=== PATIENT | male | born 1950 | race Caucasian/White ===

== ENCOUNTER 2018-04-01 07:08 | Day surgery (SDC) | payer MEDICARE, BC ==
--- NOTE | 2018-03-28 13:12 | HP ---
AMENDED REPORT NOW INCLUDES COSIGNER DESIGNATION - ESIGNED BEFORE ADJUSTMENT PREOPERATIVE HISTORY AND PHYSICAL: DATE OF ADMISSION/SURGERY: 04/01/18 ATTENDING SURGEON: Almita Szymanski MD * (DICTATED BY MIGUELANGEL KEN) WEATHER STRIP MECHANIC: Dr. Gil Roa in [place]. PROCEDURE: Right wrist de Quervain's release. HISTORY OF PRESENT ILLNESS: This is a 67-year-old male, who complains of pain in his right wrist near the base of his thumb for the past 4 months. He denies any specific injury. He reports that the pain is often times sharp, but sometimes it is dull or burning pain. He has trouble sleeping at night sometimes because of the problem and the pain has gotten worse over time. He denies any associated numbness or tingling. He is a very active individual and does a lot of hiking. He has trouble holding onto his hiking poles because of this problem. He has been diagnosed clinically with de Quervain's tenosynovitis. The patient is interested in pursuing surgical intervention for resolution of this problem. He had a quadruple bypass in 2009. He sees his denier control operator, Dr. Gil Roa, on a regular basis. He most recently had a stress test in September 2017 and there were no problems. We will get clearance from his denier control operator prior to proceeding with surgery. PAST MEDICAL HISTORY: 1. Questionable VT in 2009. 2. Hypertension. 3. Hypercholesterolemia. 4. Acid reflux. PAST SURGICAL HISTORY: 1. Quadruple bypass in 2009. 2. Left carpal tunnel release. 3. Right carpal tunnel release. 4. Cholecystectomy. 5. Appendectomy. CURRENT MEDICATIONS: 1. Aspirin 81 mg daily. 2. Atorvastatin calcium 40 mg daily. 3. CoQ10 of 100 mg daily. 4. Diclofenac sodium topical. 5. Famotidine 40 mg daily. 6. Flaxseed oil 1000 mg 2 daily. 7. Hydrochlorothiazide 25 mg daily. 8. Metoprolol succinate ER 25 mg daily. 9. Multivitamin daily. 10. Valsartan 160 mg daily. 11. Vitamin B12 of 1000 mcg daily. ALLERGIES: No known drug allergies. FAMILY HISTORY: Significant for heart disease and stroke. SOCIAL HISTORY: The patient is a retired aeroplane pilot. He denies tobacco use and recreational drug use. He does drink alcohol on occasion. He exercises regularly. REVIEW OF SYSTEMS: General: Negative for fevers, chills, night sweats, unexplained weight loss or gain. No known anesthesia problems in the past. HEENT: Negative for headache, lightheadedness, syncopal episodes, visual changes. Integumentary: Negative for abrasions, lesions, or open wounds. Cardiothoracic: Negative for hypertension, chest pain, palpitations, edema. Respiratory: Negative for shortness of breath with exertion, chronic cough, wheezing. GI: Negative for nausea, vomiting, diarrhea, constipation, GERD. : Negative for nocturia, urinary frequency, urgency, history of UTIs, kidney problems. Musculoskeletal: Positive for current complaint. Negative for chronic or intermittent back pain. Neurological: Negative for paresthesias, numbness, history of seizure, stroke, poor balance. Endocrine: Negative for diabetes and thyroid issues. Hematologic: Negative for easy bruising, anemia, bleeding disorders, history of DVT. Infectious Disease: Negative for history of MRSA, hepatitis C, HIV. PHYSICAL EXAMINATION GENERAL: Well-developed, well-nourished 67-year-old male in no acute distress. VITAL SIGNS: Height 5 feet 6 inches, weight 170 pounds. Pulse rate 66, blood pressure 132/74. HEENT: Normocephalic, atraumatic. Pupils are equal, round, and reactive to light and accommodation. Extraocular movements are intact. Throat is clear. NECK: Supple. No palpable lymph nodes. PULMONARY: Lungs are clear to auscultation bilaterally. No wheezes, rales, or rhonchi. CARDIOVASCULAR: Regular rate and rhythm. S1, S2. No murmurs, rubs, or gallops. No edema. ABDOMEN: Positive bowel sounds. Soft, nontender. NEUROLOGICAL: Alert and oriented x3. Cranial nerves II through XII are intact. Sensation is intact to light touch. MUSCULOSKELETAL: On exam of his right wrist, he has tenderness to palpation along the first dorsal compartment and a positive Anish test. Negative grind test, although he does have minimal tenderness to palpation at the thumb CMC joint. He has good motion in his fingers and thumb with some increase in pain with thumb abduction and wrist radial deviation on extension. IMAGING STUDIES: X-rays AP, lateral and oblique of the right wrist show no bony abnormality. He does not have significant thumb CMC arthritis. IMPRESSION: Right wrist de Quervain's tenosynovitis. PLAN: The patient is scheduled to undergo a right wrist Quervain's release with Dr. Szymanski on 04/01/18. He will return to the office 10 days postop for followup and suture removal. A prescription for Ultracet was e-scribed to the patient's pharmacy for postoperative pain management. We will receive cardiac clearance prior to surgery from his denier control operator, Dr. Gil Roa. KARL MAGANA, MIGUELANGEL [id number]/[facility] #: [id number] CAITY
[~2018-04-01 07:08] MED LIST: Buffered Lidocaine 0.9% SYRIN* 5 ML/SYR SYRINGE INTRADERM ONE
[2018-04-01] MEDS ORDERED: Midazolam* 1 MG/ML 2 ML VIAL (2 MG) ONE (08:14)
[2018-04-01] MEDS ORDERED: Propofol* 10 MG/ML 20 ML BTL IV PUSH ONE (08:14)
[2018-04-01] MEDS ORDERED: Lidocaine 2% MPF* 2 ML VIAL ONE (08:14)
[2018-04-01] MEDS ORDERED: fentaNYL* 50 MCG/ML 2 ML VIAL (100 MCG VIAL) ONE (08:14)
[2018-04-01] MEDS ORDERED: Ketorolac INJ* 30 MG/ML 1 ML VIAL ONE (08:14)
[2018-04-01] MEDS ORDERED: Lidocaine 1% INJ* 10 MG/ML 30 ML SDV ONE (08:18)
[2018-04-01] MEDS ORDERED: HYDROmorphone INJ* 1 MG/ML CARPUJECT SYRINGE IV PRN (08:44)
[2018-04-01] MEDS ORDERED: Ondansetron INJ* 2 MG/ML VIAL IV PRN (08:44)
[2018-04-01] MEDS ORDERED: oxyCODONE/Acetamin 5/325 MG* TAB PO PRN (08:44)
[2018-04-01] MEDS ORDERED: oxyCODONE TAB* 5 MG TAB PO PRN (08:44)
[2018-04-01] MEDS ORDERED: Acetaminophen TAB* 325 MG PO PRN (08:44)
[2018-04-01] MEDS ORDERED: Naloxone* 0.4 MG/ML 1 ML VIAL IV PRN (08:44)
[2018-04-01] MEDS ORDERED: fentaNYL* 50 MCG/ML 2 ML VIAL (100 MCG VIAL) IV PRN (08:44)
[2018-04-01 09:13] VITALS: BP 108/72
--- NOTE | 2018-04-01 14:27 | OP ---
CC: Almita Szymanski MD OPERATIVE REPORT: DATE OF OPERATION: 04/01/18 DATE OF : 54 SURGEON: Almita Szymanski MD. MONITORING SPECIALIST: MIGUELANGEL Weathers. ANESTHESIA: Local MAC. PRE-OP DIAGNOSIS: Right de Quervain's tenosynovitis. POST-OP DIAGNOSIS: Right de Quervain's tenosynovitis. OPERATIVE PROCEDURE: Right de Quervain's release. ESTIMATED BLOOD LOSS: Zero. TOURNIQUET TIME: Approximately 10 minutes. INDICATIONS FOR PROCEDURE: Mathew is a 67-year-old man who has pain on the radial aspect of his right wrist consistent with de Quervain's tenosynovitis. He presents for de Quervain's release. DESCRIPTION OF PROCEDURE: The patient was brought to the operating room, was given a sedation anesth etic and a local infiltration of 10 cc of 1% plain lidocaine at the radial aspect of his right wrist. The skin of his right hand and forearm was prepped and draped in the usual sterile fashion. The gama nd and forearm were exsanguinated and the tourniquet elevated to 250 mmHg. A longitudinal incision w as centered at the tip of the radial styloid. We dissected through the subcutaneous tissue bluntly. Branches of the radial sensory nerve were located and retracted by the surgical services coordinator, Rosa sexton. The virtual customer assistant's presence was essential for safe completion of the case by protecting the sens ory nerves. The first dorsal compartment was then incised longitudinally. The APL and EPB tendons w ere in separate compartments and these were both completely released. There was abundant and erythem atous tenosynovitis surrounding the tendons and this was debrided. The wound was irrigated and the s kin edges reapproximated with 4-0 nylon suture. The wound was dressed with Xeroform, 4x4, Webril, an d an Nadeem wrap. The patient tolerated the procedure well and was brought to the recovery room in good condition. [id number]/[facility] #: [id number]
== END 2018-04-01 09:22 | disposition home or self-care (01) ==
LOC: OREAST 07:08
PROVIDERS: ATTEND Orthopaedic Surgery
DX: M65.4 Radial styloid tenosynovitis [de Quervain] (principal); I10 Essential (primary) hypertension; E78.00 Pure hypercholesterolemia, unspecified; K21.9 Gastro-esophageal reflux disease without esophagitis; Z79.82 Long term (current) use of aspirin
CPT/HCPCS: J1885; J2250; J2704; J3010

== ENCOUNTER → 2018-11-11 09:38 | Emergency (ER) | payer MEDICARE, BC ==
--- NOTE | 2018-11-11 10:27 | ED ---
Back Pain - HPI Summary HPI Summary: Pt is a 68 y/o M presenting to the ED with a chief complaint of chest pain onset two days ago when he slipped on ice and struck the lower mid-R section of his back on his truck, also hit his head. The pt denies LOC. He has had pain since then that is worse upon movement, sneezing, and deep breaths. The pt reports relief with rest while sitting. The pt denies sob. He took one tramadol 2 days ago, one yesterday, and two today with some relief. - History of Current Complaint Chief Complaint: EDChestWallPain Stated Complaint: BACK/NECK PAIN AFTER FALL Time Seen by Provider: 11/11/18 10:14 Hx Obtained From: Patient Onset/Duration: Sudden Onset, Lasting Days, Still Present Onset/Duration: Started Days Ago, Still Present Timing: Constant Back Pain Location: Is Discrete @ - R mid-lower back Severity Initially: Moderate Severity Currently: Mild Pain Intensity: 3 Pain Scale Used: 0-10 Numeric Character: Aching Aggravating Symptom(s): Movement, Cough, Other - deep breath Alleviating Symptom(s): Rest, Position - seated Associated Signs And Symptoms: Positive: Flank Pain - Allergies/Home Medications Allergies/Adverse Reactions: Allergies Allergy/AdvReac Type Severity Reaction Status Date / Time No Known Allergies Allergy Verified 04/01/18 07:29 Home Medications: Home Medications Irbesartan 150 mg PO DAILY 11/11/18 [History Confirmed 11/11/18] PMH/Surg Hx/FS Hx/Imm Hx Previously Healthy: No Cardiovascular History: Reports: Hx Coronary Artery Disease - QUADRUPLE BYPASS 2009, Hx Hypertension - controlled with meds, Other Cardiovascular Problems/ Disorders - CHOLESTEROL CONTROL WITH MEDS GI History: Reports: Hx Gastroesophageal Reflux Disease Musculoskeletal History: Reports: Hx Tendonitis - right hand, Other Musculoskeletal History - BILATERAL CARPAL TUNNEL SYNDROME surgery 2016 Sensory History: Reports: Hx Contacts or Glasses - READING GLASSES Denies: Hx Hearing Aid Opthamlomology History: Reports: Hx Contacts or Glasses - READING GLASSES - Cancer History Hx Chemotherapy: No - Surgical History Surgery Procedure, Year, and Place: 1973 [place] [facility] [place] [facility] [place] CABG X4 ALBION[place] LEFT CTR 11/02 [facility] [place] 2015 [facility] [place] Hx Anesthesia Reactions: No Infectious Disease History: No Infectious Disease History: Denies: Traveled Outside the [place] in Last 30 Days - Family History Known Family History: Negative: Diabetes - Social History Alcohol Use: Weekly Alcohol Amount: 3-6 DRINKS PER WEEK Substance Use Type: Reports: None Smoking Status (MU): Never Smoked Tobacco Review of Systems Negative: Fever Negative: Shortness Of Breath Positive: Myalgia All Other Systems Reviewed And Are Negative: Yes Physical Exam - Summary Physical Exam Summary: Appearance: The patient is well-nourished in no acute distress and in no acute pain. Skin: The skin is warm and dry and skin color reflects adequate perfusion HEENT: The head is normocephalic and atraumatic. The pupils are equal and reactive. The conjunctivae are clear and without drainage. Nares are patent and without drainage. Mouth reveals moist mucous membranes and the throat is without erythema and exudate. The external ears are intact. The ear canals are patent and without drainage. The tympanic membranes are intact. Neck: The neck is supple with full range of motion and non-tender. There are no carotid bruits. There is no neck vein distension. Respiratory: Chest is non-tender. Lungs are clear to auscultation and breath sounds are symmetrical and equal. Cardiovascular: Heart is regular rate and rhythm. There is no murmur or rub auscultated. There is no peripheral edema and pulses are symmetrical and equal. Abdomen: The abdomen is soft and non-tender. There are normal bowel sounds heard in all four quadrants and there is no organomegaly palpated. Musculoskeletal: Tenderness on the R paradorsal region, posterior rib area. Extremities are non-tender with full range of motion. There is good capillary refill. There is no peripheral edema or calf tenderness elicited. Neurological: Patient is alert and oriented to person, place and time. The patient has symmetrical motor strength in all four extremities. Cranial nerves are grossly intact. Deep tendon reflexes are symmetrical and equal in all four extremities. Psychiatric: The patient has an appropriate affect and does not exhibit any anxiety or depression. Triage Information Reviewed: Yes Vital Signs On Initial Exam: Initial Vitals Temp Pulse Resp BP Pulse Ox 96.8 F 67 18 150/104 98 11/11/18 09:39 11/11/18 09:39 11/11/18 09:39 11/11/18 09:39 11/11/18 09:39 Vital Signs Reviewed: Yes Diagnostics - Vital Signs Vital Signs Temp Pulse Resp BP Pulse Ox 11/11/18 10:01 60 159/90 97 11/11/18 10:00 64 93 11/11/18 09:39 96.8 F 67 18 150/104 98 - Laboratory Lab Statement: Any lab studies that have been ordered have been reviewed, and results considered in the medical decision making process. - Radiology Chest x-ray Radiology Interpretation Completed By: Radiologist Summary of Radiographic Findings: No active cardiopulmonary disease. ED physician has reviewed this report. Back Pain Course/Dx - Course Course Of Treatment: Mr. Sabillon presented a few days after falling on the ice and hurting his right mid back. He denies any shortness of breath. He hit his head at the time but says that's fine now. On exam he was tender in his right posterior lateral mid chest. X-rays obtained and is read as negative per the radiologist. I think he may have nondisplaced fracture of at least one and possibly 2 ribs in the area of his pain. At any rate I recommended that we treat him symptomatically and explained the issues for him. He was given incentive spirometer and tramadol for pain and recommended follow-up with his PCP - Diagnoses Provider Diagnoses: Rib fracture Discharge - Sign-Out/Discharge Documenting (check all that apply): Patient Departure - Discharge Plan Condition: Stable Disposition: HOME Prescriptions: traMADol TAB* [Ultram*] 50 mg PO Q6HR PRN #20 tab MDD 4 PRN Reason: Pain Referrals: Bibi Hidalgo MD [Primary Care Provider] - Additional Instructions: Please return to the emergency department with any new or worsening symptoms. Follow up with your primary care provider in 2-3 days. - Billing Disposition and Condition Condition: STABLE Disposition: Home - Attestation Statements Document Initiated by Navneetibe: Yes Documenting Scribe: Sofiya Aleman Provider For Whom Artemio is Documenting (Include Credential): Tobi Mcgill MD. Scribe Attestation: Sofiya Cobb scribed for Tobi Mcgill MD. on 11/11/18 at 1839. Scribe Documentation Reviewed: Yes Provider Attestation: The documentation as recorded by the scribeSofiya accurately reflects the service I personally performed and the decisions made by me, Tobi Mcgill MD. Status of Scribe Document: Viewed
[2018-11-11 12:22] VITALS: BP 134/68
== END | disposition home or self-care (01) ==
LOC: ED 09:38
DX: S22.41XA Multiple fractures of ribs, right side, initial encounter for closed fracture (principal); W00.0XXA Fall on same level due to ice and snow, initial encounter; Y92.9 Unspecified place or not applicable; I25.10 Atherosclerotic heart disease of native coronary artery without angina pectoris; Z95.1 Presence of aortocoronary bypass graft; I10 Essential (primary) hypertension; E78.00 Pure hypercholesterolemia, unspecified; K21.9 Gastro-esophageal reflux disease without esophagitis
CPT/HCPCS: 71046; 99283